=== PATIENT | male | born 1940 | race Caucasian/White ===

== ENCOUNTER → 2017-01-06 | Outpatient (CLI) | payer OTHER, MEDICARE ==
[~2017-01-06] VITALS: Ht 185.4 cm; Wt 120.2 kg
[~2017-01-06] MED LIST: CAPOTEN 50MG TA50 MG PO; LASIX 40 MG TAB40 M2 PO; PANTOPRAZOLE SO40 M1 PO; POTASSIUM CITR10 ME1 PO; SLOW-MAG64 M1 PO; SODIUM BICARBO650 M3 PO; TUMS PO
--- NOTE | ~2017-01-06 | S ---
[facility] [address] [place] [address] SURGICAL PATH RPT PROCEDURE Name: LEONARD MCINTYRE Room #: REG [facility] M.R.#: [id number] Admission: 01/06/17 Date of : 44 Discharge: Report #: [id number] Path Case #: [id number] PATHOLOGY REPORT COLLECTION DATE: 01/06/2017 RECEIVED DATE: 01/06/2017 SUBMITTING PHYS: Dr. Leonard Waite OTHER PHYS: Dr. Leonard Gann Jr. SPECIMEN(S) RECEIVED: A.Bx GE junction * * * * * * * * * * * * FINAL DIAGNOSIS: "Bx GE junction," biopsy: - Esophageal squamous mucosa and gastric cardiac type mucosa with mild reactive changes and mild chronic inflammation; no intestinal metaplasia or dysplasia seen. (SHIRAW:; d/t: 01/07/17) PATHOLOGIST: Patricia Veliz M.D. REPORT ELECTRONICALLY SIGNED BY: Patricia Veliz M.D. DATE/TIME: 01/07/2017 21:29 * * * * * * * * * * * * GROSS PATHOLOGY: Received in formalin labeled "Leonard Mcintyre, biopsy GE junction," are 6 segments of talbret soft tissue measuring 0.8 x 0.6 x 0.3 cm in aggregate dimensions and ranging from 0.2 to 0.5 cm in maximum dimension. The specimen is submitted entirely in cassette A1. (KAH; 01/06/2017) CLINICAL HISTORY: Becerra's esophagus INITIAL CPT CODE(S): A; 26756 Professional services performed by [facility] at [facility] [address] [place] [address] Technical services performed by [facility] at [address] [place] [id number]. [facility] [address] [place] [address] SURGICAL PATH RPT PROCEDURE Name: LEONARD MCINTYRE Room #: REG [facility] aDsh#: [id number] Admission: 01/06/17 Date of : 44 Discharge: Report #: [id number] Path Case #: [id number] [facility] [address] [address] PHONE: [phone] DIRECTOR: Aditya Louis M.D. * * * END OF REPORT * * *
--- NOTE | ~2017-01-06 | P ---
[facility] [address] [place] [address] PROCEDURE REPORT Name: LEONARD EL Room #: REG [facility]#: [id number] Admission: 01/06/17 Attend Phys: Leonard Waite MD Discharge: Date of : 44 Report #: [id number] THIS REPORT FOR: //name// CC: Leonard Waite DATE OF SERVICE: 01/06/2017 BRIEF HISTORY: The patient is a 76-year-old male with history of at least 36 colon adenomas in the past who presents for high risk screening colonoscopy. PREOPERATIVE DIAGNOSES: History of polyps and for high risk screening colonoscopy. POSTOPERATIVE DIAGNOSES: 1. Mild sigmoid diverticulosis coli. 2. Markedly tortuous redundant colon. MEDICATIONS: Deep sedation with propofol per anesthesia. SPECIMEN: None. ESTIMATED BLOOD LOSS: None. PROCEDURE: Colonoscopy to cecum to ascending colon. FINDINGS: Prior to propofol sedation, procedure of colonoscopy discussed with the patient as well as potential risks and its complications. He indicates he understands and desires to proceed. DESCRIPTION OF PROCEDURE: With the patient in left lateral decubitus position, digital examination was completed which revealed no abnormalities. Subsequently, the [employer] video colonoscope was introduced into the rectum and advanced under direct vision. The patient is morbidly obese. He has a marked redundant and tortuous colon, which made forward advancement of scope very difficult. We had to use stiffening wires. We had to use multiple insertions and withdrawal of the scope as well as splinting of the abdomen with 2 tacks. In spite of all these measures, we could not reach the cecum. I do believe we advanced the scope into the ascending colon. I believe we were looking down the ascending colon after the cecum, but I could not get to the cecum or clearly identify the ileocecal valve or the appendiceal orifice. After multiple attempts and maneuvers were successful at that point, we decided to terminate the procedure and the scope was slowly withdrawn and careful circumferential views were obtained. Upon slow withdrawal of the scope, we had to clean up some segments of the colon and overall reasonably good views were obtained. The [address] [place] [address] PROCEDURE REPORT Name: LEONARD EL Room #: REG [facility] Reggie.#: [id number] Admission: 01/06/17 Attend Phys: Leonard Waite MD Discharge: Date of : 44 Report #: [id number] colonic mucosa as well as could be examined. No masses or polyps were seen. The mucosa was normal. Only abnormality noted was a mild diverticulosis of the sigmoid colon. The scope was withdrawn in the rectum. Upon retroflexion, no abnormalities were seen. Scope was withdrawn. The patient tolerated the procedure well. CONDITION OF THE PATIENT UPON DISCHARGE: Following procedure, the patient drowsy, aroused, conversant and will be discharged home when fully ambulatory. INSTRUCTIONS TO THE PATIENT AND FAMILY AT THE TIME OF DISCHARGE: Unfortunately, this patient has a history of multiple colon polyps that would raise concern about disorders such as familial polyposis coli with incomplete penetrance. Since he is at high risk and we did not reach the cecum, would suggest he return in 1 year for a followup colonoscopy. <ELECTRONICALLY SIGNED> By: Leonard Waite MD 01/07/17 1154 [id number] Leonard Waite MD /nt
--- NOTE | ~2017-01-06 | P ---
[facility] [place] [address] PROCEDURE REPORT Name: SIENNALEONARD Ríos Room #: REG [facility]#: [id number] Admission: 01/06/17 Attend Phys: Leonard Waite MD Discharge: Date of : 44 Report #: [id number] THIS REPORT FOR: //name// CC: Leonard Waite OUTPATIENT UPPER ENDOSCOPY BRIEF HISTORY: The patient is a 76-year-old male with a known history of duodenal adenomas. He also has a questionable history of Becerra. Previous endoscopy raised a question of Becerra, there was also esophagitis. Biopsy revealed junction mucosa, but due to the esophagitis followup endoscopy was recommended. PREOPERATIVE DIAGNOSIS: History of duodenal adenomas and question of Becerra esophagus. POSTOPERATIVE DIAGNOSES: 1. Moderately large hiatus hernia. MEDICATIONS: Deep sedation with propofol per anesthesia. SPECIMEN: Biopsy GE junction, rule out Becerra. ESTIMATED BLOOD LOSS: 3 mL. PROCEDURE: EGD with biopsy. FINDINGS: Prior to propofol sedation, procedure of upper endoscopy discussed with the patient as well as potential risks and its complications. He indicates he understands and desires to proceed. DESCRIPTION OF PROCEDURE: With the patient in left lateral decubitus position, the [employer] video endoscope was inserted in the cervical esophagus under direct vision without difficulty. Examination of this organ through its entire length revealed normal esophageal mucosa down the squamocolumnar junction. 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 The squamocolumnar junction appears to be in an appropriate position within 2 cm top of the gastric folds. I do not see obvious Becerra mucosa, but biopsies were obtained due to previous concerns. In addition, he was noted to have a small to moderate size sliding hiatus hernia. The mucosa and the hernia was within normal limits. Scope was advanced in the stomach, which was examined on end view as well as retroflexed views. He had normal appearing gastric mucosa. There is no evidence of gastric ulceration. Upon retroflexion, no mass lesions were seen and the mucosa noted to be normal. The pylorus was normal. Duodenal bulb was normal. Duodenal sweep down to the third and fourth portion of duodenum was inspected and noted to be within normal [facility] [address] [place] [address] PROCEDURE REPORT Name: SIENNALEONARD Ríos Room #: REG [facility].#: [id number] Admission: 01/06/17 Attend Phys: Leonard Waite MD Discharge: Date of : 44 Report #: [id number] limits. Specifically, there is no evidence of duodenal adenomas. In addition, the duodenal papilla was identified and noted to be unremarkable and mass lesions were not seen around the duodenal papilla. At that point, the scope was slowly withdrawn and careful circumferential views confirmed the above finding. Again, biopsies obtained of the GE junction. CONDITION OF THE PATIENT UPON DISCHARGE: Following the procedure, the patient drowsy. He was then prepared for colonoscopy. INSTRUCTIONS TO THE PATIENT AND FAMILY AT THE TIME OF DISCHARGE: We will follow up on biopsies regarding the Becerra mucosa. At this point, I would resume that he does not have a Becerra mucosa, but again we will follow up on biopsies. If Becerra is present, he should continue PPI on a long-term basis, if not he may reduce his PPI to intermittent use to control symptoms. We will proceed with colonoscopy at this time. <ELECTRONICALLY SIGNED> By: Leonard Waite MD 01/07/17 1154 [id number] [id number] Leonard Waite MD /nt
== END | disposition home or self-care (01) ==
LOC: GI 08:59
DX: Z12.11 Encounter for screening for malignant neoplasm of colon (principal); K57.30 Diverticulosis of large intestine without perforation or abscess without bleeding; K44.9 Diaphragmatic hernia without obstruction or gangrene; K20.8 Other esophagitis; I10 Essential (primary) hypertension; K21.9 Gastro-esophageal reflux disease without esophagitis; Z86.010 Personal history of colon polyps; Z98.890 Other specified postprocedural states
CPT/HCPCS: 43239; G0105; 62110; 62900